=== PATIENT | male | born 2000 | race Caucasian/White ===

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

== ENCOUNTER 2020-05-26 12:30 | Emergency (ER) | payer SELFPAY ==
[2020-05-26 12:35] VITALS: BP 146/78; PULSE 63; RESP 18; TEMP 36.9; O2SAT 98; BMI 18.8
--- NOTE | 2020-05-26 12:49 | HMH.EDUTC ---
[facility] [place] Disposition Clinical Impression: Exposure to COVID-19 virus Disposition: Home, Self-Care Condition on Discharge: Good Instructions: DI for COVID-19 (Suspected or Confirmed ), Preventing the Spread of Coronavirus Discharge Instructions Additional Instructions: You were tested for today for COVID19 your test result should be back in the next 24-48 hours, you may call to the [facility] to see if your test results are back in the next 48 hours [phone] [facility] hours are 9am-9pm You was given a handout with instructions for Self Quarantine and Self isolation for while you wait on test results and what to do if they are positive If you are positive the Health Dept will be contacting you also Referrals: PCP,No [Primary Care Provider] - Forms: Work/School Release Time of Disposition: 12:53 Medical Decision Making - Bryant Inquiry Pt receiving controlled substance: No Bryant was queried for this patient: No Vital Signs: 05/26/20 12:35 Temperature 98.4 F Temperature Source Oral Pulse Rate [Right Brachial] 63 Respiratory Rate 18 Blood Pressure [Right Arm] 146/78 H Blood Pressure Mean [Right Arm] 100 Blood Pressure Source [Right Arm] Automatic Cuff Blood Pressure Position [Right Arm] Sitting 02 Sat by Pulse Oximetry 98 Oxygen Delivery Method Room Air Orders (Tests/Meds): ORDERS Category Date Time Status Covid-19 Nasal PCR ([facility]) Routine Lab 05/26/20 12:42 Ordered [facility] [place] HPI - General Stated complaint: exposure Time Seen by Provider: 05/26/20 12:49 Mode of Arrival: Ambulatory Source of Information: Patient Limitations: No Limitations Description of Symptoms (Recalled from Triage Doc. by RN): PATIENT REQUESTING COVID TEST D/T EXPOSURE; DENIES SYMPTOMS HEENT Symptoms (Recalled from RN notes): No Resp Symptoms (Recalled from RN notes): No Skin Symptoms (Recalled from RN notes): No MS Symptoms (Recalled from RN notes): No Functional Status (Recalled from RN notes): WNL - History of Present Illness Provider Complaint: Patient states that he was recently around his girlfriend that recently tested positive for COVID State that he has had a cough but is an everyday smoker and typically has cough this time of year but he wanted to come in and get tested - Related Data Previous Rx's Medication Instructions Recorded amoxicillin 500 mg capsule 500 mg PO Q12H 10 Days #20 cap 07/09/18 Promethazine HCl [Phenergan 25mg 25 mg PO Q6HP PRN 3 Days #15 tab 10/07/19 tablet] Allergies Allergy/AdvReac Type Severity Reaction Status Date / Time No Known Allergies Allergy Verified 07/09/18 11:57 - Worker's Comp Is this a Worker's Comp case?: No [facility] History - Hepatitis A Screen Drug use history?: No High risk sexual behaviors?: No History of sexually transmitted infection?: No Currently employed?: No Childcare worker?: No Do you have indoor plumbing?: Yes Do you have electricity?: Yes Attestation statement:: This patient has been screened for Hepatitis A risk factors. I have reviewed the patient's past medical history: Yes Medical History: Denies:: Diabetes Mellitus Type 1, Diabetes Mellitus Type 2 Other Surgeries: Yes: No Previous Surgery Amputation: No Fractures: No - Social History Smoking Status: Current every day smoker Tobacco Type: e-cigarettes # Packs/Day (cigarettes): 0 Alcohol Intake: never Substance Use Type: denies use Occupational Status: other Housing: house Household Members: family Family Hx:: No significant family history ROS Obtained: Yes All systems reviewed & no additional complaints, Yes Systems reviewed as appropriate & no additional complaints - Constitutional Constitutional: Reports system reviewed and no additional complaints, except as docu, Denies body ache, Denies chills, Denies fever(s), Denies headache(s) - ENT Ears, Nose, Mouth, and Throat: Reports system reviewed and no additional complaints, except as docu - Cardiovascular Cardiovascular: Reports sys
[2020-05-26 12:54] VITALS: BP 146/78; PULSE 63; RESP 18; TEMP 36.9; O2SAT 98
--- NOTE | 2020-05-26 17:52 | PC.NURSE ---
PT NOTIFIED OF POSITIVE COVID TEST
== END 2020-05-26 12:55 | disposition home or self-care (01) ==
PROVIDERS: Emergency Provider Nurse Practitioner
DX: U07.1 COVID-19 (principal); F17.290 Nicotine dependence, other tobacco product, uncomplicated
CPT/HCPCS: 99201; U0003

== ENCOUNTER → 2021-02-21 16:08 | Outpatient (CLI) | payer SELFPAY | LOC: HMH.CTC 16:09 | PROVIDERS: Visit Provider Nurse Practitioner | DX: Z20.822 Contact with and (suspected) exposure to COVID-19 (principal) | CPT/HCPCS: C9803; U0003; U0005 ==

== ENCOUNTER 2021-10-20 09:48 | Emergency (ER) | payer SELFPAY ==
[2021-10-20 10:45] VITALS: BP 125/69; PULSE 59; RESP 16; TEMP 36.8; O2SAT 99; BMI 20.5
--- NOTE | 2021-10-20 10:51 | HMH.EDUTC ---
[facility] [place] Disposition Clinical Impression: Impacted cerumen of both ears Disposition: Home, Self-Care Condition on Discharge: Good Instructions: DI for Cerumen Impaction Additional Instructions: debrox drops otc use monthly to prevent build up follow up with pcp if needed do not use q tips return or be seen in ed if any concerns Referrals: Provider,Referral, [Primary Care Provider] - Time of Disposition: 10:57 Medical Decision Making - Bryant Inquiry Pt receiving controlled substance: No Vital Signs: 10/20/21 10:45 Temperature 98.2 F Temperature Source Oral Pulse Rate [Radial] 59 L Respiratory Rate 16 Blood Pressure [Right Arm] 125/69 Blood Pressure Mean [Right Arm] 87 02 Sat by Pulse Oximetry 99 [facility] [place] HPI - General Chief complaint: Urgent Treatment Center Stated complaint: lt ear pain Time Seen by Provider: 10/20/21 10:51 Mode of Arrival: Ambulatory Source of Information: Patient Limitations: No Limitations Description of Symptoms (Recalled from Triage Doc. by RN): pt is here for ear pain and he states that he can not hear out of it HEENT Symptoms (Recalled from RN notes): Yes Resp Symptoms (Recalled from RN notes): No Skin Symptoms (Recalled from RN notes): No MS Symptoms (Recalled from RN notes): No Functional Status (Recalled from RN notes): wnl - History of Present Illness Provider Complaint: 20yr old male presents for real ear pain and cant hear out of left ear worse since last pm - Related Data Previous Rx's Medication Instructions Recorded amoxicillin 500 mg capsule 500 mg PO Q12H 10 Days #20 cap 07/09/18 Promethazine HCl [Phenergan 25mg 25 mg PO Q6HP PRN 3 Days #15 tab 10/07/19 tablet] Allergies Allergy/AdvReac Type Severity Reaction Status Date / Time No Known Allergies Allergy Verified 07/09/18 11:57 - Worker's Comp Is this a Worker's Comp case?: No [facility] History - Hepatitis A Screen Attestation statement:: This patient has been screened for Hepatitis A risk factors. I have reviewed the patient's past medical history: Yes Medical History: Denies:: Diabetes Mellitus Type 1, Diabetes Mellitus Type 2 Other Surgeries: Yes: No Previous Surgery Amputation: No Fractures: No - Social History Smoking Status: Current every day smoker Tobacco Type: e-cigarettes # Packs/Day (cigarettes): 0 Alcohol Intake: never Substance Use Type: denies use Occupational Status: other Housing: house Household Members: family Family Hx:: No significant family history ROS Obtained: Yes Systems reviewed as appropriate & no additional complaints - Constitutional Constitutional: Reports system reviewed and no additional complaints, except as docu, Denies chills, Denies fever(s) - Eyes Eyes: Reports system reviewed and no additional complaints, except as docu, Denies dry eyes - ENT Ears, Nose, Mouth, and Throat: Reports system reviewed and no additional complaints, except as docu, Reports otalgia - Cardiovascular Cardiovascular: Reports system reviewed and no additional complaints, except as docu, Denies chest pain at rest - Respiratory Respiratory: Reports system reviewed and no additional complaints, except as docu, Denies chest congestion - Gastrointestinal Gastrointestingal: Reports: system reviewed and no additional complaints, except as docu. Denies: belching - Musculoskeletal Musculoskeletal: Reports system reviewed and no additional complaints, except as docu, Denies joint pain - Integumentary/Breasts Skin/Breast: Reports system reviewed and no additional complaints, except as docu, Denies rash - Neurologic Neurologic: Reports system reviewed and no additional complaints, except as docu, Denies dizziness - Endocrine Endocrine: Reports system reviewed and no additional complaints, except as docu, Denies fatigue - Hematologic/Lymphatic Henatologic/Lymphatic: Reports system reviewed and no additional complaints, except as docu, Denies easy bruising - Allerg
[2021-10-20 11:01] VITALS: BP 125/69; PULSE 59; RESP 16; TEMP 36.8
== END 2021-10-20 11:09 | disposition home or self-care (01) ==
PROVIDERS: Emergency Provider Nurse Practitioner Family
DX: H61.23 Impacted cerumen, bilateral (principal)
CPT/HCPCS: 99212; G0463

== ENCOUNTER 2024-04-10 11:28 | Emergency (ER) | payer SELFPAY ==
[2024-04-10 11:30] VITALS: BP 123/84; PULSE 88; RESP 16; TEMP 37; O2SAT 99; BMI 20.3
[2024-04-10] MEDS: ONDANSETRON 4MG/2ML VIAL 4 MG IV (11:54)
[2024-04-10 12:15] LABS: Basophils % 0.3 % (0.1-2.0); Eosinophils % 0.3 % (0.1-12.0); Hematocrit 47.6 % (42.0-52.0); Hemoglobin 16.7 g/dL (14.1-18.0); Lymphocytes # 0.5 K/mm3 (0.7-4.5); Mean Corpuscular HGB Conc 35.2 g/dL (31.8-35.4); Mean Corpuscular Hemoglobin 29.9 pg (27.0-31.2); Mean Corpuscular Volume 84.9 fl (80-94); Monocytes # 0.3 K/mm3 (0.1-1.0); Neutrophils # 7.2 K/mm3 (1.8-7.8); Neutrophils % 89.4 % (37.0-80.0); Platelet Count 207 K/mm3 (142-424); Red Blood Count 5.61 M/mm3 (4.60-6.20); Red Cell Distribution Width 13.6 % (11.5-17.5); White Blood Count 8.1 K/mm3 (4.8-10.8)
[2024-04-10 12:18] LABS: MANUAL DIFFERENTIAL MANUAL DIFFERENTIAL (MANUAL DIFF)
[2024-04-10 12:22] LABS: Alanine Aminotransferase 17 U/L (12-78); Albumin Level 4.5 g/dl (3.5-5.0); Albumin/Globulin Ratio 1.6 (1.1-1.8); Alkaline Phosphatase 29 U/L (38-126); Anion Gap 12.4 mEq/L (5-15); Aspartate Amino Transferase 29 U/L (17-59); Blood Urea Nitrogen 21 mg/dl (9-20); Carbon Dioxide 30 mmol/L (22.0-30.0); Chloride 100 mmol/L (98-107); Estimated Glomerular Filt Rate 75 ml/min (>60); GFR (African American) 91 ML/MIN (>60); Globulin 2.8 g/dL (1.3-3.2); Glucose 104 mg/dl (74-100); Lipase 46 U/L (23-300); Potassium 4.4 mmoL/L (3.5-5.1); Sodium 138 mmol/L (136-145); Total Protein,Serum 7.3 g/dl (6.3-8.2)
--- NOTE | 2024-04-10 12:32 | [facility].EDGENADL ---
Discharge Plan Disposition Patient Disposition: Home, Self-Care Prescriptions Prescriptions: New ondansetron 4 mg tablet,disintegrating 4 mg PO Q6H PRN (Reason: nausea and vomiting) Qty: 10 0RF ondansetron 4 mg tablet,disintegrating 4 mg PO Q6H PRN (Reason: nausea and vomiting) Qty: 10 0RF No Action ciprofloxacin HCl 0.3 % drops See Rx Instructions ophthalmic (eye) .COMPLEX Qty: 2.5 0RF Rx Instructions: put 1-2 drps in affected eye(s) every 2hr up to 8 times/day x2days; then 4 times/day x5days ophthalmic (eye) Referrals Follow up/Referrals: Provider,Referral, MD [Primary Care Provider] - See instructions Activity Restrictions/Add. Instructions Additional Instructions/Restrictions: Call your family doctor to establish care for this visit to the emergency department and schedule follow-up within 48 hours to ensure improvement. If you have any worsening of your condition or any other concerning signs or symptoms, return to the emergency department or your primary care doctor for further evaluation. Clinical Impressions Clinical Impression: Gastroenteritis Instructions Patient Instructions: DI for Acute Abdominal Pain Print Language Print Language: Romanian Discharge ED Provider: Dewey Joseph General Adult HPI General Chief complaint: Abdominal Pain Stated complaint: V/D x2 days, fever, chills Time Seen by Provider: 04/10/24 11:33 History of Present Illness HPI narrative: Please note that above description of symptoms, in this electronic medical record under categorization of recalled from ER triage doctor by RN are reflective of an initial nursing assessment, however, is not reflective of my full history and physical exam that was personally taken and clarified. Consequentially, this preceding description of symptoms, which may include the patient's categorized chief complaint in the EMR, do not reflect my personal clinical impression, and the ultimate description of history of present illness and patient stated complaints should be deferred to this section of the note. Unless stated otherwise or congruent with this section of the note, additional signs, symptoms, or incongruence should be interpreted as inaccurate with my clinical impression. Related Data Previous Rx's ?Medication ?Instructions ?Recorded ciprofloxacin HCl 0.3 % eye drops See Rx Instructions ophthalmic 08/16/22 (eye) .COMPLEX #2.5 mL ondansetron 4 mg disintegrating 4 mg PO Q6H PRN nausea and 04/10/24 tablet vomiting #10 tabs ondansetron 4 mg disintegrating 4 mg PO Q6H PRN nausea and 04/10/24 tablet vomiting #10 tabs Allergies Allergy/AdvReac Type Severity Reaction Status Date / Time No Known Allergies Allergy Verified 08/16/22 08:46 [facility] Disclaimer: The information contained in this section may have been updated after the patient was seen, as this information can be updated by other users. Social History Smoking Status: Never smoker alcohol intake: never substance use type: denies use current occupational status: other Travel in the last 8 weeks: None household members: family housing: house Other Medical History Have you received the Flu Vaccine for this season: No Have you received the Pneumonia Vaccine: No ROS Obtained: Yes All systems reviewed & no additional complaints except as documented Physical Exam General General appearance: alert Head Head exam: atraumatic and normocephalic Eye Eye exam: Present normal appearance, PERRL and EOMI Neck Neck exam: Present normal inspection, full ROM and trachea midline Respiratory Respiratory exam: Absent respiratory distress, wheezes, stridor, accessory muscle use or prolonged expiratory phase Cardiovascular Cardiovascular exam: Present other (Pulses equal symmetric in upper and lower extremities) Abdominal Exam Abdominal exam: Present soft; Absent distention, tenderness or pulsatile mass Extremities Exam Extremities exam: Absent edema Neurological Exam Neurological exam: Present alert, oriented X3 and CN II-XII intact; Absent motor sensory deficit Skin Skin exam: Present warm and dry; Absent diaphoresis or erythema Medical Decision Making Medical Records Medical records reviewed: Yes I reviewed the patient's medical records. Screening: Per USPSTF and CDC recommendations, given the prevalence of disease in our region, it is our hospital?s policy to screen for HIV and viral Hepatitis for all patients aged 18 and over and those with ongoing risk factors. Bryant Inquiry Pt receiving controlled substance: No Bryant was queried for this patient: No Vital Signs: 04/10/24 11:30 04/10/24 12:47 Temperature 98.6 F Temperature Source Oral Pulse Rate 75 Pulse Rate [Left Radial] 88 Respiratory Rate 16 Blood Pressure 110/72 Blood Pressure [Right Arm] 123/84 Blood Pressure Mean [Right Arm] 97 Blood Pressure Source [Right Arm] Automatic Cuff Blood Pressure Position [Right Arm] Sitting 02 Sat by Pulse Oximetry 99 100 Oxygen Delivery Method Room Air Room Air Lab Data Lab Results 04/10/24 11:43: WBC 8.1, RBC 5.61, Hgb 16.7, Hct 47.6, MCV 84.9, MCH 29.9, MCHC 35.2, RDW 13.6, Plt Count 207, MPV 7.0 L, Neut % (Auto) 89.4 H, Lymph % (Auto) 6.0 L, [place] % (Auto) 4.0, Eos % (Auto) 0.3, Baso % (Auto) 0.3, Neut # (Auto) 7.2, Lymph # (Auto) 0.5 L, [place] # (Auto) 0.3, Eos # (Auto) 0.0, Baso # (Auto) 0.0, Total Counted 100, Neutrophils % (Manual) 90 H, Lymphocytes % (Manual) 6 L, Monocytes % (Manual) 4, Platelet Estimate Normal, Spherocytes 1+, Sodium 138, Potassium 4.4, Chloride 100, Carbon Dioxide 30, Anion Gap 12.4, BUN 21 H, Creatinine 1.20, Estimated GFR 75, Est GFR ( Amer) 91, Glucose 104 H, Calcium 9.0, Total Bilirubin 1.0, AST 29, ALT 17, Alkaline Phosphatase 29 L, Total Protein 7.3, Albumin 4.5, Globulin 2.8, Albumin/Globulin Ratio 1.6, Lipase 46 04/10/24 11:43 04/10/24 11:43 Orders (Tests/Meds): ED MEDICATIONS Discontinued Medications Generic Name Dose Route Start Last Admin Trade Name Freq PRN Reason Stop Dose Admin Ondansetron HCl 4 mg 04/10/24 11:44 04/10/24 11:54 Ondansetron 4mg/2ml Vial IV 04/10/24 11:45 4 mg ONCE ONE Administration ORDERS Category Date Time Status CBC w/Auto Diff [Complete Blood Count Auto Diff] Stat Lab 04/10/24 11:43 Completed CMP [Comprehensive Metabolic Panel] Stat Lab 04/10/24 11:43 Completed HIV (1&2) Antibody Rapid Stat Lab 04/10/24 11:43 Received Hep C Ab with Reflex to RNA Stat Lab 04/10/24 11:43 Received Lipase Stat Lab 04/10/24 11:43 Completed Medical Decision Narrative: Otherwise healthy 23-year-old male presenting with vomiting diarrhea. Been going on for about 2 days. Has tolerated very little solid intake. Able to tolerate p.o. intake in the form of liquids. No blood in his vomit or stool. Has not taken anything other than Phenergan for nausea last night, states it made him sleep for a long period of time, able to wake up and tolerate some p.o. intake today. Came in today concern for dehydration. No other symptoms. History obtained with patient and significant other. Well-appearing male in no acute distress. Hemodynamically stable, nontachycardic and afebrile. Abdomen is soft, incredibly benign. Patient speaking in full sentences, jovial, very well clinically appearing. Differential includes gastritis, gastroenteritis, among others. Labs obtained. On independent interpretation, normal and nonactionable. patient was given Zofran and p.o. challenged successfully. I feel this is likely logistics service representative of gastroenteritis given patient has sick contacts with similar symptoms. Because patient at baseline without signs or symptoms of clinical decompensation, deemed appropriate for discharge. Results were relayed to patient who voiced understanding and were agreeable to outpatient management and follow up. I discussed my clinical impression with patient and answered all questions. At this time, the evidence for any other entities in the differential is insufficient to warrant any further testing or ED observation. This was explained as well. Advisory was given that persistent or worsening symptoms require further evaluation. I confirmed the understanding of this discussion. Rail Car [employer] disclaimer Much of this encounter note is an electronic braker passenger train spoken language to printed text. Electronic braker passenger train of the spoken language may permit errors. Although I have reviewed the note, some errors may still exist. Critical Care Critical Care Time Critical Care Time: No
--- NOTE | 2024-04-10 12:45 | PC.NURSE ---
Rounded on pt. Water provided. No other needs voiced and call light within reach
[2024-04-10 12:47] VITALS: BP 110/72; PULSE 75; O2SAT 100
[2024-04-10 12:59] LABS: Lymphocytes % 6 % (10-50); Monocytes % 4 % (2-9); Neutrophils % 90 % (42-76); Platelet Estimate Normal; Spherocytes 1+; Total Cells Counted 100
[2024-04-10 14:11] VITALS: BP 110/72; PULSE 75; RESP 16; TEMP 37; O2SAT 100
[2024-04-10 14:59] LABS: HIV (1&2) Antibody Rapid NONREACTIVE (NONREACTIVE)
[2024-04-11 09:15] LABS: HCV Ab Non Reactive (Non Reactive)
== END 2024-04-10 14:12 | disposition home or self-care (01) ==
PROVIDERS: Emergency Provider Emergency Medicine
DX: K52.9 Noninfective gastroenteritis and colitis, unspecified (principal); R10.9 Unspecified abdominal pain; R11.11 Vomiting without nausea; R50.9 Fever, unspecified
CPT/HCPCS: 80053; 83690; 85007; 85025; 85027; 86803; 87389; 96374; 99283; J2405